=== PATIENT | female | born 1945 | race Caucasian/White ===

== ENCOUNTER 2017-08-17 23:16 | Emergency (ER) | payer MEDICARE ==
[~2017-08-17] VITALS: Ht 152.4 cm; Wt 67.1 kg
[2017-08-17 23:21] VITALS: BP 147/74; PULSE 106; RESP 16; TEMP 97.6; O2SAT 98
[2017-08-18] MEDS ORDERED: TRAZ100T10 PO (00:05)
[2017-08-18] MEDS ORDERED: SIMV40TA PO (00:05)
[2017-08-18] MEDS ORDERED: QUET400T PO (00:05)
[2017-08-18] MEDS ORDERED: ALPR1TAB3 PO (00:05)
[2017-08-18] MEDS ORDERED: ZOLO100T PO (00:05)
[2017-08-18] MEDS ORDERED: PANC3600 PO (00:05)
[2017-08-18] MEDS ORDERED: LEVO75TA3 PO (00:05)
[2017-08-18] MEDS ORDERED: LISI10TA3 PO (00:05)
[2017-08-18] MEDS ORDERED: ASPI1TAB57 PO (00:05)
[2017-08-18] MEDS ORDERED: SERU1POW PO (00:06)
[2017-08-18] MEDS ORDERED: HYOS1TAB9 PO (00:06)
[2017-08-18] MEDS ORDERED: FLUT50SP EACH NARE (00:06)
[2017-08-18] MEDS ORDERED: DORZ2SOL15 EACH EYE (00:06)
[2017-08-18] MEDS ORDERED: LATA0.002 EACH EYE (00:06)
[2017-08-18] MEDS ORDERED: SODIUM CHLOR 0.9% 1000 ML INJ 1,000 ML IV ONE (00:10)
[2017-08-18] MEDS ORDERED: SODIUM CHLORIDE 0.9% FLUSH 10 ML FLUSH IVF PRN (00:15)
[2017-08-18] MEDS ORDERED: ONDANSETRON HCL 4 MG/2 ML VIAL IV PUSH ONE (00:15)
[2017-08-18] MEDS ORDERED: PANTOPRAZOLE SODIUM 40 MG VIAL IV PUSH ONE (00:15)
[2017-08-18 00:38] LABS: AUTOMATED NEUTROPHIL # 6.9 TH/MM3 (1.8-7.7); BASOPHIL % 0.5 % (0.0-2.0); EOSINOPHIL % 0.5 % (0.0-4.0); HEMATOCRIT 40.1 % (35.0-46.0); HEMOGLOBIN 13.3 GM/DL (11.6-15.3); LYMPH % 11.8 % (9.0-44.0); LYMPHOCYTE # 0.9 TH/MM3 (1.0-4.8); MEAN CELL VOLUME 84.9 FL (80.0-100.0); MEAN CORPUSCULAR HEMOGLOBIN 28.1 PG (27.0-34.0); MEAN CORPUSCULAR HGB CONC 33.1 % (32.0-36.0); MEAN PLATELET VOLUME 8.3 FL (7.0-11.0); MONO % 4.1 % (0.0-8.0); MONOCYTE # 0.3 TH/MM3 (0-0.9); NEUT % 83.1 % (16.0-70.0); PLATELET COUNT 253 TH/MM3 (150-450); RED BLOOD COUNT 4.72 MIL/MM3 (4.00-5.30); RED CELL DISTRIBUTION WIDTH 13.6 % (11.6-17.2); WHITE BLOOD COUNT 8.1 TH/MM3 (4.0-11.0)
[2017-08-18 00:41] VITALS: O2SAT 98
[2017-08-18 00:46] LABS: CHLORIDE 106 MEQ/L (98-107); SODIUM (NA) 137 MEQ/L (136-145)
[2017-08-18 00:50] LABS: BICARBONATE 21.5 MEQ/L (21.0-32.0); BLOOD UREA NITROGEN 19 MG/DL (7-18); CALCIUM 8.7 MG/DL (8.5-10.1); GLUCOSE,RANDOM 125 MG/DL (74-106); MAGNESIUM 1.9 MG/DL (1.5-2.5)
[2017-08-18 00:53] LABS: ALT (GPT) 18 U/L (10-53); AST (GOT) 13 U/L (15-37); CREATININE 0.79 MG/DL (0.50-1.00); GLOMERULAR FILTRATION RATE 72 ML/MIN (>89)
[2017-08-18 00:55] LABS: TOTAL BILIRUBIN ADULT 0.4 MG/DL (0.2-1.0); TOTAL PROTEIN 7.9 GM/DL (6.4-8.2)
[2017-08-18 00:56] LABS: ALKALINE PHOSPHATASE 110 U/L (45-117)
[2017-08-18 00:58] LABS: TROPONIN I LESS THAN 0.02 NG/ML (0.02-0.05)
--- NOTE | 2017-08-18 00:59 | RADRPT ---
EXAM DATE/TIME: 08/18/2017 00:20 [place] COMPARISON: No previous studies available for comparison. INDICATIONS : Vomiting MEDICAL HISTORY : Pancreatitis. Hypertension Hypercholesterolemia. Colitis. Hypothroidism. Glaucoma. Macular degene ration. Bipolar. SURGICAL HISTORY : section. ENCOUNTER: Initial ACUITY: 1 day PAIN SCORE: 7/10 LOCATION: Bilateral chest FINDINGS: A single view of the chest demonstrates the lungs to be symmetrically aerated without evidence of mas s, infiltrate or effusion. Minimal basilar atelectasis or scarring. CONCLUSION: 1. Minimal basal atelectasis or scarring. No effusion or pneumothorax. Gino Liang MD on August 18, 2017 at 0:57 Board Certified Radiologist. This report was verified electronically.
[2017-08-18 01:25] VITALS: BP 127/79; PULSE 87; RESP 16; O2SAT 95
[2017-08-18 03:01] LABS: BILIRUBIN, URINE NEG (NEG); BLOOD, URINE SMALL (NEG); GLUCOSE,URINE NEG (NEG); KETONE, URINE NEG (NEG); NITRITE,URINE NEG (NEG); PH, URINE 5.5 (5.0-8.5); URINE COLOR YELLOW (YELLW/STRAW); URINE LEUKOCYTE ESTERASE TRACE (NEG)
[2017-08-18 03:05] LABS: SQUAMOUS EPITHELIAL CELL URINE 0-5 /hpf (0-5); WHITE BLOOD CELL CLUMPS FEW
[2017-08-18 03:48] VITALS: BP 126/79; PULSE 91; RESP 18; O2SAT 95
--- NOTE | 2017-08-18 03:49 | PD ---
HPI Chief Complaint: GI Complaint Time Seen by Provider: 00:10 Travel History International Travel<30 days: Yes Contact w/Intl Traveler<30days: Yes Name of Country Traveled to: [facility] Traveled to known affect area: No History of Present Illness HPI 71-year-old female presents to the emergency department by private transportation for complaint of nausea vomiting and mild diarrhea. Patient recently returned from vacationing to [facility]. Patient states she has done well on her vacation until Saturday when she traveled back from international destination. Patient traveled most of Saturday. Patient returned home by 8 PM on Saturday evening. Patient started noticing stomach upset on around 8:30 PM. Patient's had multiple episodes of vomiting. Patient complains of nausea. Patient had some loose stool. Patient denies bilious emesis hematemesis coffee- ground emesis melena or hematochezia. Patient has history of chronic recurrent pancreatic issues and exocrine pancreatic insufficiency for which she takes Creon and other pancreatic enzyme supplements. Patient states today she noticed that she did not have much of an appetite and had poor oral intake drinking only a small amount of water while on her long distance travel return home. Patient did attempt to eat some dinner when she arrived home but developed nausea and vomiting. Patient denies any known dietary indiscretion and has been has consumed the same foods. Patient rates her discomfort 7/10 intensity due to her nausea not actual reproducible pain per patient. Patient denies fever chills. Patient is not aware of any dysuria but has had some mild urgency and flank pain. Patient denies hematuria. PFSH Past Medical History Narrative Medical Anxiety depression dyslipidemia hypothyroidism exocrine pancreatic insufficiency Bipolar Disorder: Yes Anxiety: Yes High Cholesterol: Yes Diminished Hearing: No Endocrine: Yes (Hypothyroid, Goiter) Gastrointestinal Disorders: Yes (Collagenous colitis) Medical other: Yes (Exocrine pancreatic insufficiency) Tetanus Vaccination: > 5 Years Influenza Vaccination: Yes ?: Not Past Surgical History Section: Yes (x 2) Other Surgery: Yes (Bunion to bilateral feet) Social History Alcohol Use: No Tobacco Use: No Substance Use: No Allergies-Medications (Allergen,Severity, Reaction): Coded Allergies: amoxicillin (Verified Allergy, Severe, Diarrhea, 08/17/17) aripiprazole (Verified Allergy, Severe, Dizziness, 08/17/17) clavulanic acid (Verified Allergy, Severe, Diarrhea, 08/17/17) Reported Meds & Prescriptions Reported Meds & Active Scripts Active Zofran Odt (Ondansetron Odt) 4 Mg Tab 4 Mg SL Q6HR PRN Keflex (Cephalexin) 500 Mg Capsule 500 Mg PO Q6H 7 Days Reported Fluticasone Nasal [place] 50 Mcg/Act Naspr 50 Mcg EACH NARE BID 50 mcg/spray Enteragam Inj (Serum-Derived Bovine Immunoglobulin Inj) 5 Gram Pow 1 Packet PO DIRECTED Dorzolamide-Timolol Opth Drops 22.3-6.8 Mg/Ml Soln 1 Drop EACH EYE BID Hyoscyamine (Hyoscyamine Sulfate) 0.125 Mg Tab 0.125 Mg PO Q6H Latanoprost Opth Drops (Latanoprost) 0.005% Drops 1 Drop EACH EYE HS Refrigerate until opened. Zoloft (Sertraline HCl) 100 Mg Tab 100 Mg PO DAILY Trazodone (Trazodone HCl) 100 Mg Tablet 200 Mg PO HS Simvastatin 40 Mg Tab 40 Mg PO HS Quetiapine (Quetiapine Fumarate) 400 Mg Tab 400 Mg PO HS Lisinopril 10 Mg Tab 10 Mg PO DAILY Levothyroxine (Levothyroxine Sodium) 75 Mcg Tab 75 Mcg PO DAILY Creon (Pancrelipase) 36,000-114,000-180,000 Units Cap 1 Cap PO TIDPC Aspirin 81 (Aspirin) 81 Mg Tabdr 81 Mg PO DAILY Alprazolam 1 Mg Tab 1 Mg PO Q6H PRN Review of Systems Except as stated in HPI: all other systems reviewed are Neg General / Constitutional: No: Fever, Chills HENT: No: Congestion Cardiovascular: No: Chest Pain or Discomfort Respiratory: No: Shortness of Breath Gastrointestinal: Positive: Nausea, Vomiting, Diarrhea, Abdominal Pain Genitourinary: Positive: Urgency, Flank Pain, No: Dysuria Musculoskeletal: No: Myalgias, Arthralgias, Edema, Pain Skin: No Rash Neurologic: Positive: Weakness Psychiatric: No: Anxiety Endocrine: No: Heat Intolerance, Cold Intolerance Hematologic/Lymphatic: No: Easy Bruising Physical Exam Narrative GENERAL: Elderly female in no acute distress no respiratory distress SKIN: Warm and dry. HEAD: Normocephalic. EYES: No scleral icterus. No injection or drainage. NECK: Supple, trachea midline. No JVD or lymphadenopathy. CARDIOVASCULAR: Regular rate and rhythm without murmurs, gallops, or rubs. RESPIRATORY: Breath sounds equal bilaterally. No accessory muscle use. GASTROINTESTINAL: Abdomen soft, non-tender, nondistended. MUSCULOSKELETAL: No cyanosis, or edema. BACK: Nontender without obvious deformity. No CVA tenderness. Data Data Last Documented VS Vital Signs Date Time Temp Pulse Resp B/P (MAP) Pulse Ox O2 Delivery O2 Flow Rate FiO2 08/18/17 03:48 91 18 126/79 (95) 95 Room Air 08/17/17 23:21 97.6 Orders Orders Complete Blood Count With Diff (08/18/17 00:10) Comprehensive Metabolic Panel (08/18/17 00:10) Lipase (08/18/17 00:10) Iv Access Insert/Monitor (08/18/17 00:10) Ecg Monitoring (08/18/17 00:10) Oximetry (08/18/17 00:10) Ondansetron Inj (Zofran Inj) (08/18/17 00:15) Pantoprazole Inj (Protonix Inj) (08/18/17 00:15) Sodium Chlor 0.9% 1000 Ml Inj (Ns 1000 M (08/18/17 00:10) Sodium Chloride 0.9% Flush (Ns Flush) (08/18/17 00:15) Enteric Path (Stool) (08/18/17 00:10) Chest, Single Ap (08/18/17 00:10) Magnesium (Mg) (08/18/17 00:10) Troponin I (08/18/17 00:10) Ckmb (Isoenzyme) Profile (08/18/17 00:10) Cath For Specimen (08/18/17 02:34) Urinalysis - C+S If Indicated (08/18/17 02:45) Urine Culture (08/18/17 02:43) Ceftriaxone Inj (Rocephin Inj) (08/18/17 04:00) Ed Discharge Order (08/18/17 03:56) Labs Laboratory Tests Test 08/18/17 00:21 4 02:43 White Blood Count 8.1 TH/MM3 Red Blood Count 4.72 MIL/MM3 Hemoglobin 13.3 GM/DL Hematocrit 40.1 % Mean Corpuscular Volume 84.9 FL Mean Corpuscular Hemoglobin 28.1 PG Mean Corpuscular Hemoglobin Concent 33.1 % Red Cell Distribution Width 13.6 % Platelet Count 253 TH/MM3 Mean Platelet Volume 8.3 FL Neutrophils (%) (Auto) 83.1 % Lymphocytes (%) (Auto) 11.8 % Monocytes (%) (Auto) 4.1 % Eosinophils (%) (Auto) 0.5 % Basophils (%) (Auto) 0.5 % Neutrophils # (Auto) 6.9 TH/MM3 Lymphocytes # (Auto) 0.9 TH/MM3 Monocytes # (Auto) 0.3 TH/MM3 Eosinophils # (Auto) 0.0 TH/MM3 Basophils # (Auto) 0.0 TH/MM3 CBC Comment DIFF FINAL Differential Comment Blood Urea Nitrogen 19 MG/DL Creatinine 0.79 MG/DL Random Glucose 125 MG/DL Total Protein 7.9 GM/DL Albumin 4.0 GM/DL Calcium Level 8.7 MG/DL Magnesium Level 1.9 MG/DL Alkaline Phosphatase 110 U/L Aspartate Amino Transf (AST/SGOT) 13 U/L Alanine Aminotransferase (ALT/SGPT) 18 U/L Total Bilirubin 0.4 MG/DL Sodium Level 137 MEQ/L Potassium Level 3.5 MEQ/L Chloride Level 106 MEQ/L Carbon Dioxide Level 21.5 MEQ/L Anion Gap 10 MEQ/L Estimat Glomerular Filtration Rate 72 ML/MIN Total Creatine Kinase 64 U/L Troponin I LESS THAN 0.02 NG/ML Lipase 150 U/L Urine Color YELLOW Urine Turbidity CLEAR Urine pH 5.5 Urine Specific [place] 1.020 Urine Protein NEG mg/dL Urine Glucose (UA) NEG mg/dL Urine Ketones NEG mg/dL Urine Occult Blood SMALL Urine Nitrite NEG Urine Bilirubin NEG Urine Urobilinogen 0.2 MG/DL Urine Leukocyte Esterase TRACE Urine RBC 3-5 /hpf Urine WBC 6-8 /hpf Urine WBC Clumps FEW Urine Squamous Epithelial Cells 0-5 /hpf Urine Bacteria NONE /hpf Microscopic Urinalysis Comment CATH-CULTURE IND MDM Medical Decision Making Medical Screen Exam Complete: Yes Emergency Medical Condition: Yes Medical Record Reviewed: Yes Interpretation(s) CBC & BMP Diagram 08/18/17 00:21 Total Protein 7.9, Albumin 4.0, Calcium Level 8.7, Magnesium Level 1.9, Alkaline Phosphatase 110, Aspartate Amino Transf (AST/SGOT) 13 L, Alanine Aminotransferase (ALT/SGPT) 18, Total Bilirubin 0.4 Vital Signs Date Time Temp Pulse Resp B/P (MAP) Pulse Ox O2 Delivery O2 Flow Rate FiO2 08/18/17 03:48 91 18 126/79 (95) 95 Room Air 08/18/17 01:25 87 16 127/79 (95) 95 Room Air 08/18/17 00:41 98 Room Air 08/17/17 23:48 18 08/17/17 23:21 97.6 106 16 147/74 (98) 98 cxr: FINDINGS: A single view of the chest demonstrates the lungs to be symmetrically aerated without evidence of mass, infiltrate or effusion. Minimal basilar atelectasis or scarring. CONCLUSION: 1. Minimal basal atelectasis or scarring. No effusion or pneumothorax. Gino Liang MD on August 18, 2017 at 0:57 Board Certified Radiologist. This report was verified electronically. Differential Diagnosis Gastroenteritis, foodborne illness, bowel obstruction, diverticulitis, colitis, viral syndrome, UTI, dehydration, electrolyte disturbance Narrative Course IV access obtained specimens collected and sent for resulting abdomen soft nontender no guarding or rebound; patient appears dehydrated; patient administered Zofran 4 mg IV along with normal saline 125 cc/h specimens collected and sent for resulting CBC with automated differential normal total white cell count hemoglobin hematocrit with mild left shift; metabolic panel elevated BUN of 19 otherwise values grossly within normal range Urinalysis catheterized specimen positive white blood cells complete blood cells bacteria and cultures indicated; patient ordered first dose Patient reports marked clinical and symptomatic improvement after fluid bolus and Zofran aware of abnormal urinalysis and need for one-time dose of IV antibiotic and will be discharged with oral antibiotic and Zofran for nausea vomiting. Patient desirous of being discharged home and able to demonstrate tolerating oral hydration well in the emergency department. Diagnosis Primary Impression: Gastroenteritis Additional Impression: UTI (urinary tract infection) Qualified Codes: N30.00 - Acute cystitis without hematuria Referrals: Primary Care Physician 2 days Patient Instructions: General Instructions Additional Instructions: Follow clear liquid diet for next 12-24 hours advance diet as tolerated to bland then regular diet resume chronic medications as chronically prescribed once tolerating oral hydration and bland diet well Follow-up with your primary care provider on Saturday call office to schedule appointment Return to the emergency department for any concerns or change in condition Monitor temperature for fever take acetaminophen/Tylenol for fever 100.4F or greater Increase fluid hydration Med/Other Pt SpecificInfo: Prescription(s) given Scripts Ondansetron Odt (Zofran Odt) 4 Mg Tab 4 MG SL Q6HR Y for Nausea/Vomiting, #5 TAB 0 Refills Prov: Laurie Ortiz MD 08/18/17 Cephalexin (Keflex) 500 Mg Capsule 500 MG PO Q6H for Infection for 7 Days, #28 CAP 0 Refills Prov: Laurie Ortiz MD 08/18/17 Disposition: 01 DISCHARGE HOME Condition: Stable Laurie Ortiz MD Aug 18, 2017 03:49
[2017-08-18] MEDS ORDERED: CEPH-460 PO (03:55)
[2017-08-18] MEDS ORDERED: ZOFR4TAB3 SL (03:55)
[2017-08-18] MEDS ORDERED: cefTRIAXone INJ 1,000 MG in SODIUM CHLORIDE 0.9% INJ 100 ML IV ONE (04:00)
== END 2017-08-18 04:52 | disposition home or self-care (01) ==
LOC: PHED 23:16
DX: K52.9 Noninfective gastroenteritis and colitis, unspecified (principal); N39.0 Urinary tract infection, site not specified; R53.1 Weakness; F41.9 Anxiety disorder, unspecified; E78.5 Hyperlipidemia, unspecified; E03.9 Hypothyroidism, unspecified; K86.81 Exocrine pancreatic insufficiency; F31.9 Bipolar disorder, unspecified; E78.00 Pure hypercholesterolemia, unspecified
CPT/HCPCS: 71045; 80053; 81001; 82550; 83690; 83735; 84484; 85025; 87086; 96361; 96374; 96375; 99284; C9113; J0696; J2405; J7030; P9612